=== PATIENT | female | born 1950 | race Hispanic/Latino ===

== ENCOUNTER 2019-07-14 19:31 | Emergency (ER) | payer OTHER ==
[2019-07-14 20:35] LABS: Absolute Lymphocytes (CBC) 1.7 K/uL (0.7-4.9); Basophils % 0.5 % (0-1.3); Hematocrit 38.5 % (36.0-45.0); MPV 9.4 fL (7.6-11.3); Protime INR 1.07; RBC Red Blood Cell Count 4.14 M/uL (3.86-4.86)
--- NOTE | 2019-07-14 20:36 | RAD REPORT ---
EXAM DESCRIPTION: RAD - Chest Single View - 07/14/2019 8:12 pm CLINICAL HISTORY: Hypertension COMPARISON: None. TECHNIQUE: AP portable chest image was obtained 2010 hour . FINDINGS: Lungs are clear. Heart and vasculature are normal. No measurable pleural effusion and no p neumothorax. No acute bony abnormality seen. No acute aortic findings suspected. IMPRESSION: No acute cardiopulmonary process. No significant change from comparison.
[2019-07-14 20:56] LABS: ALT/SGPT 23 U/L (12-78); AST/SGOT 27 U/L (15-37); Albumin 4.1 g/dL (3.4-5.0); Alkaline Phosphatase 90 U/L (45-117); BUN Blood Urea Nitrogen 14 mg/dL (7-18); Bicarbonate 23 mmol/L (21-32); Bilirubin Direct 0.1 mg/dL (0-0.2); Bilirubin Total 0.5 mg/dL (0.2-1.0); Glucose Level 84 mg/dL (74-106); Magnesium 2.1 mg/dL (1.8-2.4); NT PRO-BNP 171 pg/mL (<125); Potassium 3.7 mmol/L (3.5-5.1); Sodium Level 137 mmol/L (136-145); Troponin (Emerg Dept Use Only) < 0.02 ng/mL (0.0-0.045)
--- NOTE | 2019-07-14 21:32 | ER ---
Nurse's Notes [facility] Name: Carol Barnett Age: 68 yrs Sex: Female : 1950 Arrival Date: 07/14/2019 Time: 19:32 Bed 19 Private MD: Diagnosis: Weakness Presentation: 07/14 20:04 Presenting complaint: Patient states: she started feeling bad today and checked her BGL bb and it was 99 she got a "funny feeling in my stomach" and went and checked her BP and it was high at 151/79 she states her doctor told her not to let her BGL drop below 100 so she became panicked and upset she states her stomach feels "funny" denies abdominal pain, vomiting or diarrhea. Transition of care: patient was not received from another setting of care. Onset of symptoms was July 14, 2019. Risk Assessment: Do you want to hurt yourself or someone else? Patient reports no desire to harm self or others. Initial Sepsis Screen: Does the patient meet any 2 criteria? No. Patient's initial sepsis screen is negative. Does the patient have a suspected source of infection? No. Patient's initial sepsis screen is negative. Care prior to arrival: None. 20:04 Method Of Arrival: Ambulatory bb 20:04 Acuity: LIBERTY 3 bb Historical: - Allergies: 20:17 Codeine; bb 20:17 PENICILLINS; bb - Home Meds: 20:17 alendronate 70 mg Oral tab 1 tab once wkly [Active]; allopurinol 300 mg Oral tab 1 tab bb once daily [Active]; levothyroxine 50 mcg tab 1 tab once daily [Active]; loratadine 10 mg Oral tab 1 tab once daily [Active]; metoprolol tartrate 50 mg Oral tab 1 tab 2 times per day [Active]; montelukast 10 mg Oral tab 1 tab once daily [Active]; pantoprazole 40 mg Oral TbEC 1 tab once daily [Active]; probiotics [Active]; lisinopril 5 mg Oral tab 1 tab once daily [Active]; aspirin 81 mg Oral chew 1 tab once daily [Active]; - PMHx: 20:17 Hypertension; pre-diabetic; Osteoporosis; Hypothyroidism; bb - PSHx: 20:17 bladder lift; bb - Immunization history:: Adult Immunizations up to date. - Social history:: Smoking status: Patient/guardian denies using tobacco. - Ebola Screening: : No symptoms or risks identified at this time. Screenin:18 Abuse screen: Denies threats or abuse. Denies injuries from another. Nutritional ao screening: No deficits noted. Tuberculosis screening: No symptoms or risk factors identified. Fall Risk None identified. Assessment: 21:13 General: Appears in no apparent distress. comfortable, Behavior is calm, cooperative, ao appropriate for age. Pain: Complains of pain in abdomen. Neuro: Level of Consciousness is awake, alert, obeys commands, Oriented to person, place, time, situation, Appropriate for age Moves all extremities. Full function Speech is normal. Cardiovascular: Capillary refill < 3 seconds Patient's skin is warm and dry. Respiratory: Airway is patent Respiratory effort is even, unlabored, Respiratory pattern is regular, symmetrical. GI: Abdomen is non-distended. : No signs and/or symptoms were reported regarding the genitourinary system. EENT: No signs and/or symptoms were reported regarding the EENT system. Derm: No signs and/or symptoms reported regarding the dermatologic system. Musculoskeletal: Circulation, motion, and sensation intact. Range of motion: intact in all extremities. 21:17 Reassessment: Patient appears in no apparent distress at this time. Patient and/or ao family updated on plan of care and expected duration. Pain level reassessed. Patient is alert, oriented x 3, equal unlabored respirations, skin warm/dry/pink. Updated in POC and labs. 22:09 Reassessment: PD instructions given to patient. Pt agree with POC and to follow up. ao Vital Signs: 20:17 BP 166 / 73; Pulse 58; Resp 16 S; Temp 97.9(O); Pulse Ox 97% on R/A; Weight 90.72 kg bb (R); Height 5 ft. 0 in. (152.40 cm) (R); Pain 0/10; 21:17 BP 169 / 85; Pulse 51; Resp 18; Pulse Ox 96% on R/A; Pain 0/10; ao 20:17 Body Mass Index 39.06 (90.72 kg, 152.40 cm) bb ED Course: 19:32 Patient arrived in ED. ds1 19:58 Sekou Jalloh MD is Attending Physician. tw4 20:08 Triage completed. bb 20:12 Mckeon, Jose, RN is Primary Nurse. ao 20:12 XRAY Chest (1 view) In Process Unspecified. EDMS 20:17 Arm band placed on Patient placed in an exam room, on a stretcher, on pulse oximetry. bb Family accompanied patient. 20:25 Initial lab(s) drawn, by me, sent to lab. Inserted saline lock: 20 gauge in right jd2 antecubital area, using aseptic technique. Blood collected. 21:18 Patient has correct armband on for positive identification. panel monitor on. Pulse ao ox on. NIBP on. 22:08 No provider procedures requiring assistance completed. IV discontinued, intact, ao bleeding controlled, No redness/swelling at site. Pressure dressing applied. Administered Medications: No medications were administered Outcome: 21:31 Discharge ordered by MD. choudhury 22:08 Discharged to home ambulatory. ao 22:08 Condition: stable 22:08 Discharge instructions given to patient, Instructed on discharge instructions, follow up and referral plans. Demonstrated understanding of instructions, follow-up care, medications. 22:09 Patient left the ED. ao Signatures: Dispatcher [employer] [facility] Maylin Wiley ds1 Vivian Jamil, RN RN Jose Ramos, RN RN ao Shanda Navarro jd2 Sekou Jalloh MD MD tw4
--- NOTE | 2019-07-14 21:32 | EDPHYS ---
Physician Documentation [facility] Name: Carol Barnett Age: 68 yrs Sex: Female : 1950 Arrival Date: 07/14/2019 Time: 19:32 Bed 19 Private MD: ED Physician Sekou Jalloh HPI: 07/14 23:39 This 68 yrs old Female presents to ER via Ambulatory with complaints of tw4 Dizziness, Doesn't Feel Right. 23:39 The patient presents with lightheadedness. Onset: The symptoms/episode began/occurred tw4 today. Context: occurred at home. Modifying factors: The symptoms are alleviated by nothing, the symptoms are aggravated by nothing. Associated signs and symptoms: The patient has no apparent associated signs or symptoms. Severity of symptoms: At their worst the symptoms were mild in the emergency department the symptoms are unchanged. The patient has not experienced similar symptoms in the past. Historical: - Allergies: 20:17 Codeine; bb 20:17 PENICILLINS; bb - Home Meds: 20:17 alendronate 70 mg Oral tab 1 tab once wkly [Active]; allopurinol 300 mg Oral tab 1 tab bb once daily [Active]; levothyroxine 50 mcg tab 1 tab once daily [Active]; loratadine 10 mg Oral tab 1 tab once daily [Active]; metoprolol tartrate 50 mg Oral tab 1 tab 2 times per day [Active]; montelukast 10 mg Oral tab 1 tab once daily [Active]; pantoprazole 40 mg Oral TbEC 1 tab once daily [Active]; probiotics [Active]; lisinopril 5 mg Oral tab 1 tab once daily [Active]; aspirin 81 mg Oral chew 1 tab once daily [Active]; - PMHx: 20:17 Hypertension; pre-diabetic; Osteoporosis; Hypothyroidism; bb - PSHx: 20:17 bladder lift; bb - Immunization history:: Adult Immunizations up to date. - Social history:: Smoking status: Patient/guardian denies using tobacco. - Ebola Screening: : No symptoms or risks identified at this time. ROS: 23:39 Constitutional: Negative for fever, chills, and weight loss, Eyes: Negative for injury, tw4 pain, redness, and discharge, Cardiovascular: Negative for chest pain, palpitations, and edema, Respiratory: Negative for shortness of breath, cough, wheezing, and pleuritic chest pain, Abdomen/GI: Negative for abdominal pain, nausea, vomiting, diarrhea, and constipation, Back: Negative for injury and pain. 23:39 Neuro: Positive for dizziness, Negative for altered mental status, gait disturbance, headache, hearing loss, loss of consciousness, numbness, seizure activity, tinnitus. Exam: 23:39 Constitutional: This is a well developed, well nourished patient who is awake, alert, tw4 and in no acute distress. Head/Face: Normocephalic, atraumatic. Chest/axilla: Normal chest wall appearance and motion. Nontender with no deformity. No lesions are appreciated. Cardiovascular: Regular rate and rhythm with a normal S1 and S2. No gallops, murmurs, or rubs. Normal PMI, no JVD. No pulse deficits. Respiratory: Lungs have equal breath sounds bilaterally, clear to auscultation and percussion. No rales, rhonchi or wheezes noted. No increased work of breathing, no retractions or nasal flaring. Abdomen/GI: Soft, non-tender, with normal bowel sounds. No distension or tympany. No guarding or rebound. No evidence of tenderness throughout. MS/ Extremity: Pulses equal, no cyanosis. Neurovascular intact. Full, normal range of motion. Neuro: Awake and alert, GCS 15, oriented to person, place, time, and situation. Cranial nerves II-XII grossly intact. Motor strength 5/5 in all extremities. Sensory grossly intact. Cerebellar exam normal. Normal gait. Vital Signs: 20:17 BP 166 / 73; Pulse 58; Resp 16 S; Temp 97.9(O); Pulse Ox 97% on R/A; Weight 90.72 kg bb (R); Height 5 ft. 0 in. (152.40 cm) (R); Pain 0/10; 21:17 BP 169 / 85; Pulse 51; Resp 18; Pulse Ox 96% on R/A; Pain 0/10; ao 20:17 Body Mass Index 39.06 (90.72 kg, 152.40 cm) bb MDM: 19:58 Patient medically screened. tw4 23:43 Differential diagnosis: generalized weakness, idiopathic dizziness. Data reviewed: tw4 vital signs, nurses notes. Counseling: I had a detailed discussion with the patient and/or guardian regarding: the historical points, exam findings, and any diagnostic results supporting the discharge/admit diagnosis. Special discussion: I discussed with the patient/guardian in detail that at this point there is no indication for admission to the hospital. It is understood, however, that if the symptoms persist or worsen the patient needs to return immediately for re-evaluation. 07/14 19:59 Order name: Basic Metabolic Panel; Complete Time: 21:16 07/14 21:17 Interpretation: Normal except: GFR 68. 07/14 19:59 Order name: CBC with Diff; Complete Time: 20:51 07/14 20:52 Interpretation: Normal except: MCV 93.2. 07/14 19:59 Order name: LFT's; Complete Time: 21:16 07/14 21:17 Interpretation: GLOB 3.9. 07/14 19:59 Order name: Magnesium; Complete Time: 21:16 07/14 21:17 Interpretation: Within normal limits: MG 2.1. 07/14 19:59 Order name: NT PRO-BNP; Complete Time: 21:16 07/14 21:17 Interpretation: Within normal limits: NT PRO-BNP 171. 07/14 19:59 Order name: PT-INR; Complete Time: 20:51 07/14 20:52 Interpretation: Normal except: PT 12.6. 07/14 19:59 Order name: Troponin (emerg Dept Use Only); Complete Time: 21:16 07/14 21:17 Interpretation: Within normal limits: TROPED < 0.02. 07/14 19:59 Order name: XRAY Chest (1 view); Complete Time: 20:51 07/14 20:52 Interpretation: No acute disease. 07/14 19:59 Order name: EKG; Complete Time: 20:01 07/14 19:59 Order name: Cardiac monitoring; Complete Time: 20:12 07/14 19:59 Order name: EKG - Nurse/Tech; Complete Time: 20:12 07/14 19:59 Order name: IV Saline Lock; Complete Time: 20:25 07/14 19:59 Order name: Labs collected and sent; Complete Time: 20:25 07/14 19:59 Order name: O2 Per Protocol; Complete Time: 20:13 tw4 07/14 19:59 Order name: O2 Sat Monitoring; Complete Time: : tw4 EC:39 Rate is 51 beats/min. Rhythm is regular. QRS [place] is Normal. [place] interval is normal. QRS tw4 interval is normal. QT interval is normal. No Q waves. T waves are Normal. No ST changes noted. Clinical impression: Sinus bradycardia. Interpreted by me. Reviewed by me. Administered Medications: No medications were administered Disposition: 07/14/19 21:31 Discharged to Home. Impression: Weakness. - Condition is Stable. - Discharge Instructions: Weakness, Fatigue. - Medication Reconciliation Form, Thank You Letter, Antibiotic Education, Prescription Opioid Use form. - Follow up: Private Physician; When: Upon discharge from the Emergency Department; Reason: If symptoms return, Recheck today's complaints, Continuance of care. - Problem is new. - Symptoms have improved. Signatures: Dispatcher [employer] [facility] Vivian Jamil RN RN bb Ortiz, Alex, RN RN ao Wadley, Terrence, MD MD tw4 Corrections: (The following items were deleted from the chart) 20:17 20:01 Head Brain Wo [id number].RAD.BRZ ordered. [facility] EDRI 22:09 21:31 07/14/2019 21:31 Discharged to Home. Impression: Weakness. Condition is Stable. ao Forms are Medication Reconciliation Form, Thank You Letter, Antibiotic Education, Prescription Opioid Use. Follow up: Private Physician; When: Upon discharge from the Emergency Department; Reason: If symptoms return, Recheck today's complaints, Continuance of care. Problem is new. Symptoms have improved. tw4
[2019-07-14 23:49] VITALS: TEMP 97.9
[2019-07-14 23:50] VITALS: BP 169/85; O2SAT 96
--- NOTE | 2019-07-15 10:37 | EKG ---
Test Date: 2019-07-14 Test Time: 20:05:14 Perfect Binder Operator: MATILDE MEASUREMENT RESULTS: Intervals: Rate: 51 ID: [id number] QRSD: 80 QT: 438 QTc: 403 [place]: P: 35 ID: [id number] QRS: 42 T: 58 INTERPRETIVE STATEMENTS: Sinus bradycardia Otherwise normal ECG Compared to ECG 06/18/2016 22:02:53 Sinus tachycardia no longer present Fusion complex(es) no longer present Electronically Signed On 07-15-19 10:36:34 CDT by Xavier Del Rio
== END 2019-07-14 22:09 | disposition home or self-care (01) ==
LOC: ER 19:31
DX: R53.1 Weakness (principal); I10 Essential (primary) hypertension; R73.03 Prediabetes; E03.9 Hypothyroidism, unspecified; Z79.82 Long term (current) use of aspirin; Z88.0 Allergy status to penicillin; Z88.5 Allergy status to narcotic agent
CPT/HCPCS: 36415; 71045; 80048; 80076; 83735; 83880; 84484; 85025; 85610; 93005; 99284